=== PATIENT | male | born 1970 | race Caucasian/White ===

== ENCOUNTER 2017-10-11 12:28 | Emergency (ER) | payer MEDICAID ==
[2017-10-11] MEDS ORDERED: PROPARACAINE 0.5% OPHTH DROPS 15 ML EACHEYE STA (14:13)
[2017-10-11 14:26] VITALS: BP 130/89
--- NOTE | 2017-10-11 15:03 | ED Physician Documentation ---
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 contacts Review of Systems Constitutional: denies: Fever, Chills Eyes: reports: Photophobia, Irritation PD PAST MEDICAL HISTORY - Past Medical History Past Medical History: No Cardiovascular: None Respiratory: None Neuro: None Endocrine/Autoimmune: None Psych: Depression - Past Surgical History Past Surgical History: Yes - Present Medications Home Medications: Ambulatory Orders Medication Instructions Recorded Confirmed Erythromycin Base [Erythromycin] 1 applic OP Q4H #1 tub 10/11/17 Ibuprofen [Motrin] 400 mg PO Q6H PRN #20 tablet 10/11/17 - Allergies Allergies/Adverse Reactions: Allergies Allergy/AdvReac Type Severity Reaction Status Date / Time No Known Drug Allergies Allergy Verified 10/11/17 12:32 - Social History Does the pt smoke?: Yes Smoking Status: Current every day smoker Does the pt drink ETOH?: No Does the pt have substance abuse?: Yes Substance Use and Type: Marijuana - Immunizations Immunizations are current?: Yes - POLST Patient has POLST: No PD ED PE NORMAL - Vitals Vital signs reviewed: Yes - HEENT HEENT: PERRL, EOMI, Other (L eye very injected, thin cloudy dc, pupils roughly equal, does not appear "steamy" globes soft, EOMI, no FB seen even under lid, vertical abrasion approx 3 oclock, much less photophobic after proparacain, no limbal flush, some lid erythema but no edema and no proptosis and able to EOMI) Results - Vitals Vitals: Vital Signs - 24 hr 10/11/17 10/11/17 12:29 14:25 Temperature 36.4 C L 36.4 C L Heart Rate 117 H 112 H Respiratory 16 20 Rate Blood Pressure 140/92 H 130/89 H O2 Saturation 98 100 Oxygen O2 Source Room air PD MEDICAL DECISION MAKING - ED course ED course: exam c/w infected corneal abrasion will rx emycin ointment HR noted, a little better after proparacaine, do not think pt is septic etc, may be due to discomfort and stress over being in the ED Departure - Departure Disposition: 01 Home, Self Care Clinical Impression: Corneal abrasion Qualifiers: Encounter type: initial encounter Laterality: left Qualified Code(s): S05.02XA - Injury of conjunctiva and corneal abrasion without foreign body, left eye, initial encounter Conjunctivitis Qualifiers: Conjunctivitis type: unspecified Laterality: left Qualified Code(s): H10.9 - Unspecified conjunctivitis Condition: Good Instructions: ED Conjunctivitis Nonspecific, ED Eye Injury Corneal Abrasion Follow-Up: Dominick Flores MD [Provider Admit Priv/Credential] - (call office to be seen in follow up or Sunday) Prescriptions: Erythromycin Base [Erythromycin] 1 applic OP Q4H #1 tub Ibuprofen [Motrin] 400 mg PO Q6H PRN #20 tablet PRN Reason: Pain Comments: You have an abrasion to the lateral aspect of the cornea of your left eye and also it looks like you have a superficial eye infection called conjunctivitis. It does not look like glaucoma or a globe perforation etc Recommend you use the antibiotic ointment I prescribed every 4 hr while away, apply cool compresses and take motrin as needed for the pain, and follow p with the eye doctor Sunday or Sunday Return to the ER if worse Forms: Activity restrictions
== END 2017-10-11 15:29 | disposition home or self-care (01) ==
LOC: ED 12:28
DX: S05.02XA Injury of conjunctiva and corneal abrasion without foreign body, left eye, initial encounter (principal); W22.8XXA Striking against or struck by other objects, initial encounter; H10.9 Unspecified conjunctivitis; F17.200 Nicotine dependence, unspecified, uncomplicated
CPT/HCPCS: 99283; J3490

== ENCOUNTER 2017-10-16 13:56 | Emergency (ER) | payer MEDICAID ==
[2017-10-16 14:02] VITALS: BP 139/100
[2017-10-16] MEDS ORDERED: TOBRAM/DEXAMETH OPHTH DROPS 2.5 ML EACHEYE STA (14:17)
--- NOTE | 2017-10-16 14:20 | ED Physician Documentation ---
PD HPI OPHTHO - Stated complaint Stated Complaint: EYE IRRITATION - Chief complaint Chief Complaint: Heent - History obtained from History obtained from: Patient - History of Present Illness Timing - onset: Other (He was seen here about 6 days ago for left eye pain and periorbital swelling which has improved. He was diagnosed with corneal abrasion. Over the last couple of days similar pain and redness has moved to the right eye but without the swelling. There is no associated deficit in vision.) Review of Systems Constitutional: denies: Fever, Chills Eyes: reports: Photophobia, Discharge, Irritation. denies: Loss of vision, Decreased vision Ears: denies: Loss of hearing, Ear pain PD PAST MEDICAL HISTORY - Past Medical History Past Medical History: Yes Cardiovascular: None Respiratory: None Neuro: None Endocrine/Autoimmune: None Psych: Depression - Past Surgical History Past Surgical History: Yes - Present Medications Home Medications: Ambulatory Orders Medication Instructions Recorded Confirmed Erythromycin Base [Erythromycin] 1 applic OP Q4H #1 tub 10/11/17 Ibuprofen [Motrin] 400 mg PO Q6H PRN #20 tablet 10/11/17 Tobramycin/Dexamethasone [Tobradex 1 drops EACHEYE QID #1 bot 10/16/17 Eye Drops] - Allergies Allergies/Adverse Reactions: Allergies Allergy/AdvReac Type Severity Reaction Status Date / Time No Known Drug Allergies Allergy Verified 10/16/17 14:02 - Social History Does the pt smoke?: Yes Smoking Status: Current every day smoker Does the pt drink ETOH?: No Does the pt have substance abuse?: Yes - Immunizations Immunizations are current?: Yes - POLST Patient has POLST: No PD ED PE NORMAL - Vitals Vital signs reviewed: Yes - General General: Alert and oriented X 3, No acute distress - HEENT HEENT: Other (B red conjunctivitis bilaterally with mild to moderate periorbital edema on the left involving the lids only. That he says is much better than prior. Globes are soft. There is no periorbital swelling on the right. Flourescein examination is negative bilaterally.) - Neuro Neuro: Alert and oriented X 3, Normal speech - Psych Psych: Normal mood, Normal affect Results - Vitals Vitals: Vital Signs - 24 hr 10/16/17 13:59 Temperature 36.7 C Heart Rate 119 H Respiratory 18 Rate Blood Pressure 139/100 H O2 Saturation 99 Oxygen O2 Source Room air Departure - Departure Disposition: 01 Home, Self Care Clinical Impression: Conjunctivitis Qualifiers: Conjunctivitis type: acute Acute conjunctivitis type: unspecified Laterality: bilateral Qualified Code(s): H10.33 - Unspecified acute conjunctivitis, bilateral Condition: Good Record reviewed to determine appropriate education?: Yes Instructions: ED Conjunctivitis Nonspecific Prescriptions: Tobramycin/Dexamethasone [Tobradex Eye Drops] 1 drops EACHEYE QID #1 bot Comments: Use the eyedrops for the next week then stop. Follow-up with an eye doctor in that timeframe, since he cannot go to the in [place] as he does not take your insurance, call your insurance to see who is covered. Return if worse. Your blood pressure was elevated today on check into the emergency department. This does not mean that you have hypertension, it is a common phenomenon to come to the emergency department and have elevated blood pressure. I recommend that you see your primary care physician within the week to have it rechecked when you are feeling better.
== END 2017-10-16 14:25 | disposition home or self-care (01) ==
LOC: ED 13:56
DX: H10.33 Unspecified acute conjunctivitis, bilateral (principal); R03.0 Elevated blood-pressure reading, without diagnosis of hypertension; F17.200 Nicotine dependence, unspecified, uncomplicated
CPT/HCPCS: 99283; A9270

== ENCOUNTER 2019-12-05 08:53 | Emergency (ER) | payer MEDICAID ==
[2019-12-05 09:10] VITALS: BP 130/84
--- NOTE | 2019-12-05 09:21 | ED Physician Documentation ---
History of Present Illness - Stated complaint Stated Complaint: MALE - Chief complaint Chief Complaint: General - History obtained from History obtained from: Patient - History of Present Illness Timing: Last night Pain level max: 0 Pain level now: 0 - Additonal information Additional information: 49-year-old male presents to the emergency department stating that he had a lump on his left testicle, no the superior portion, last night. Does not have a doctor so came in for evaluation. Is otherwise asymptomatic. No pain. No discharge. Nothing makes it better or worse. Review of Systems Constitutional: denies: Fever Respiratory: denies: Cough GI: denies: Vomiting, Diarrhea Skin: denies: Rash Musculoskeletal: denies: Neck pain, Back pain Neurologic: denies: Headache PD PAST MEDICAL HISTORY - Past Medical History Cardiovascular: None Respiratory: None Endocrine/Autoimmune: None Psych: Depression - Past Surgical History Past Surgical History: Yes - Present Medications Home Medications: Ambulatory Orders Medication Instructions Recorded Confirmed Erythromycin Base [Erythromycin] 1 applic OP Q4H #1 tub 10/11/17 Ibuprofen [Motrin] 400 mg PO Q6H PRN #20 tablet 10/11/17 Tobramycin/Dexamethasone [Tobradex 1 drops EACHEYE QID #1 bot 10/16/17 Eye Drops] - Allergies Allergies/Adverse Reactions: Allergies Allergy/AdvReac Type Severity Reaction Status Date / Time No Known Drug Allergies Allergy Verified 12/05/19 09:10 - Social History Does the pt smoke?: Yes Smoking Status: Current every day smoker Does the pt drink ETOH?: No Does the pt have substance abuse?: Yes - Immunizations Immunizations are current?: Yes - POLST Patient has POLST: No PD ED PE NORMAL - Vitals Vital signs reviewed: Yes - General General: Alert and oriented X 3, No acute distress - HEENT HEENT: Moist mucous membranes - Neck Neck: Supple, no meningeal sign - Cardiac Cardiac: RRR - Respiratory Respiratory: No respiratory distress, Clear bilaterally - Abdomen Abdomen: Soft, Non tender, Non distended - Male Male : Other (small mass at the superior aspect of the L testicle. o/w normal B testicular exam and penis exam. No LAD. no discharge.) - Derm Derm: Warm and dry - Neuro Neuro: Alert and oriented X 3 - Psych Psych: Normal mood, Normal affect Results - Vitals Vitals: Vital Signs - 24 hr 12/05/19 12/05/19 12/05/19 09:04 10:27 11:00 Temperature 98.3 C H Heart Rate 108 H 103 H 96 Respiratory 16 20 Rate Blood Pressure 130/84 H O2 Saturation 93 100 98 Oxygen O2 Source Room air - Rads (name of study) testicular US Radiology: Prelim report reviewed, EMP read contemporaneously, See rad report (1. The testes demonstrate no evidence of mass or torsion. 2. There are bilateral hydroceles. 3. There are bilateral epididymal cysts. ) PD MEDICAL DECISION MAKING - ED course Complexity details: considered differential, d/w patient ED course: Patient with no acute findings on ultrasound. Does have bilateral hydroceles and bilateral epididymal cyst. These findings were shared with the patient. We will have him follow-up with urology for further care. No emergency medical condition at this time. Patient counseled regarding signs and symptoms for which I believe and urgent re-evaluation would be necessary. Patient with good understanding of and agreement to plan and is comfortable going home at this time This document was made in part using voice recognition software. While efforts are made to proofread this document, sound alike and grammatical errors may occur. Departure - Departure Disposition: 01 Home, Self Care Clinical Impression: Testicular mass Condition: Good Instructions: ED Testicular Pain [facility] Follow-Up: Nito Reyes MD [Provider Admit Priv/Credential] - Comments: Your ultrasound does not show any acute abnormality. You should follow-up with urology to ensure there are no other abnormalities. Discharge Date/Time: 12/05/19 11:00
--- NOTE | 2019-12-05 10:47 | Ultrasound Report ---
Reason: L testicular mass Procedure Date: 12/05/2019 Accession Number: [id number] / [id number] Procedure: US - Testicle w/Doppler CPT Code: Final Report FULL RESULT: EXAM: SCROTAL ULTRASOUND EXAM DATE: 12/05/2019 10:23 AM. CLINICAL HISTORY: Left testicular mass. COMPARISON: None. TECHNIQUE: Real-time scanning was performed with static images obtained. Both color-flow and Doppler spectral analysis were utilized. FINDINGS: Right: Testis: 4.7 x 2.7 x 3.4 cm. Normal size and echotexture. No mass, calcification, or abnormal blood flow. Epididymis: Blood flow and size within normal limits. There are epididymal head and body cysts. Hydrocele: Moderate sized. Varicocele: None. Left: Testis: 4.9 x 2.3 x 3.1 cm. Normal size and echotexture. No mass, calcification, or abnormal blood flow. Epididymis: Normal size and blood flow. There are epididymal head cysts. Hydrocele: Moderate sized. Varicocele: None. IMPRESSION: 1. The testes demonstrate no evidence of mass or torsion. 2. There are bilateral hydroceles. 3. There are bilateral epididymal cysts. RADIA
== END 2019-12-05 11:00 | disposition home or self-care (01) ==
LOC: ED 08:53
DX: N50.89 Other specified disorders of the male genital organs (principal); N43.3 Hydrocele, unspecified; N50.3 Cyst of epididymis; F17.200 Nicotine dependence, unspecified, uncomplicated
CPT/HCPCS: 76870; 93975; 99283; 99284

== ENCOUNTER 2022-02-09 10:06 | Emergency (ER) | payer MEDICAID ==
--- NOTE | 2022-02-09 10:36 | ED Physician Documentation ---
PD HPI HEADACHE - Stated complaint Stated Complaint: HEADACHE - Chief complaint Chief Complaint: Neuro - History obtained from History obtained from: Patient - History of Present Illness Timing - onset: How many days ago (3) Timing - onset during: Rest, Light activity Timing - duration: Days (3) Timing - details: Gradual onset, Still present Worst headache ever?: Worst headache ever? (yes, but similar character as other prior.) Location: Back Quality: Aching, Stabbing Associated symptoms: Nausea, Vision changes (having some fluttering lights in right eye.). No: Fever, Stiff neck, Vomiting, Weakness, Numbness Contributing factors: No: Anticoagulated, Recent illness, Trauma Similar symptoms before: Has not had sx before Review of Systems Constitutional: denies: Fever, Chills Nose: denies: Rhinorrhea / runny nose, Congestion Throat: denies: Sore throat Respiratory: denies: Cough GI: reports: Nausea. denies: Abdominal Pain, Vomiting, Diarrhea Skin: denies: Rash, Lesions Neurologic: reports: Headache. denies: Focal weakness, Numbness, Near syncope, Confused, Altered mental status, Head injury Psychiatric: denies: Depressed PD PAST MEDICAL HISTORY - Past Medical History Cardiovascular: None Respiratory: None Neuro: Migraines Endocrine/Autoimmune: None Psych: Depression - Past Surgical History Past Surgical History: Yes - Present Medications Home Medications: Ambulatory Orders Medication Instructions Recorded Confirmed HYDROcod/ACETAM 5/325 [[place] 5/325] 1 ea PO Q6H PRN #15 tablet 02/09/22 dexAMETHasone [Decadron] 4 mg PO DAILY #5 tablet 02/09/22 tiZANidine [Zanaflex] 4 mg PO Q8H PRN #20 tablet 02/09/22 - Allergies Allergies/Adverse Reactions: Allergies Allergy/AdvReac Type Severity Reaction Status Date / Time No Known Drug Allergies Allergy Verified 02/09/22 10:19 - Social History Does the pt smoke?: Yes Smoking Status: Current every day smoker Does the pt drink ETOH?: No Does the pt have substance abuse?: Yes - Immunizations Immunizations are current?: Yes - POLST Patient has POLST: No PD ED PE NORMAL - Vitals Vital signs reviewed: Yes - General General: Alert and oriented X 3, Well developed/nourished, Other (appears in pain, preferring darker room. 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, No motor deficit, No sensory deficit, Normal speech, Other Eye Opening: Spontaneous Motor: Obeys Commands Verbal: Oriented GCS Score: 15 Results - Vitals Vitals: Vital Signs - 24 hr 02/09/22 02/09/22 02/09/22 10:19 11:18 11:50 Temperature 36.5 C Heart Rate 93 83 85 Respiratory 18 16 16 Rate Blood Pressure 144/90 H 135/91 H 144/99 H O2 Saturation 97 100 100 02/09/22 02/09/22 12:05 12:48 Temperature Heart Rate 84 79 Respiratory 14 12 Rate Blood Pressure 162/107 H 161/102 H O2 Saturation 97 100 Oxygen O2 Source Room air - Labs Labs: Laboratory Tests 02/09/22 02/09/22 02/09/22 11:00 11:00 11:00 WBC 7.3 RBC 5.04 Hgb 14.4 Hct 43.3 MCV 85.9 MCH 28.6 MCHC 33.3 RDW 12.1 Plt Count 211 MPV 8.9 Neut # (Auto) 4.8 Lymph # (Auto) 1.5 [place] # (Auto) 0.7 Eos # (Auto) 0.2 Baso # (Auto) 0.1 Absolute Nucleated RBC 0.00 Nucleated RBC % 0.0 ESR 4 Sodium 138 Potassium 4.0 Chloride 102 Carbon Dioxide 29 Anion Gap 7.0 BUN 19 Creatinine 0.8 Estimated GFR (MDRD) 102 Glucose 100 Calcium 8.5 Magnesium 2.0 Total Bilirubin 0.6 AST 13 ALT 21 Alkaline Phosphatase 79 Total Protein 6.8 Albumin 3.7 Globulin 3.1 Albumin/Globulin Ratio 1.2 Lipase 24 - Rads (name of study) head CT Radiology: Prelim report reviewed (no acute intracranial findings. ), See rad report PD MEDICAL DECISION MAKING - ED course Complexity details: reviewed results (head CT is good. Meanwhile, was given meds for migraine pain (toradol, antiemetic) and is improved. ), re-evaluated patient (feeling improved with IV meds but still stiff neck muscles with trigger points at trapeqius muscle at level of T2, both left and right. ), considered differential (gradual onset and worsening. consider tumor/bleed/etc and will get CT to ensure no acute abnormality. ), d/w patient Departure - Departure Disposition: 01 Home, Self Care Clinical Impression: Generalized headache, Neck muscle spasm Condition: Stable Record reviewed to determine appropriate education?: Yes Instructions: ED Cephalgia Unspecified Prescriptions: dexAMETHasone [Decadron] 4 mg PO DAILY #5 tablet HYDROcod/ACETAM 5/325 [[place] 5/325] 1 ea PO Q6H PRN #15 tablet PRN Reason: Pain tiZANidine [Zanaflex] 4 mg PO Q8H PRN #20 tablet PRN Reason: Spasms Comments: Your CT scan was normal without any signs of bleeding swelling tumors etc. Your blood count was normal and you did not have a fever or any infectious symptoms. You do not have any localized weakness or cyst visual problems. These would suggest that its not related to a bleed or infectious cause such as meningitis nor stroke etc. You do have symptoms that may be consistent with migraine. The medications we gave typically will help migraine in particular. You do have a lot of muscular tenderness in the upper neck and shoulders and so you may be having a muscular tension headache as well. I would anticipate improving through the day and into tomorrow. You may consider some anti-inflammatories daily for the next few days to try to reduce recurrence and improve the muscular component. Also tizanidine muscle relaxant for stiffness and spasms. Heat stretching and massage to the upper back and neck can be useful. At [place] every 4-6 hours if needed for pain or hydrocodone/acetaminophen if needed for worse pain. I transmitted your prescriptions to [facility] in [place] at your direction. I am prescribing a short course of narcotic pain medication for you. These are potentially dangerous and addictive medications that should be used carefully. These medications may constipate you. Take an [id number] stool softener such as docusate twice daily with plenty of water while taking these medications. If you go 24 hours without a bowel movement, take [id number] MiraLAX, per package instructions. Do not drink or drive while taking these medications. If you received narcotic or sedating medications while in the emergency department do not drive for 24 hours. Store this medication in a safe, secure place and out of reach of children. It is a violation of federal law to give or sell this medication to another person or to use in a manner other than prescribed. The ED will not refill narcotic prescriptions, including prescriptions lost or stolen. You can dispose of unwanted medications at the [facility]'s office or at several pharmacies such as [facility]. Recheck if not improved well completely over the next several days or if other symptoms develop or you have frequent recurrences. Discharge Date/Time: 02/09/22 13:04
[2022-02-09] MEDS ORDERED: PROCHLORPERAZINE 10 MG/2 ML VIAL IVP STA (10:56)
[2022-02-09] MEDS ORDERED: SODIUM CHLORIDE 0.9% 1,000 ML IV STA (10:56)
[2022-02-09] MEDS ORDERED: KETOROLAC 15 MG/ML VIAL IVP STA (10:56)
[2022-02-09] MEDS ORDERED: diphenhydrAMINE INJ 50 MG/ML VIAL IVP STA (10:56)
[2022-02-09 11:05] LABS: BASOPHILS # (AUTO) 0.1 10^3/uL (0.0-0.1); BASOPHILS % (AUTO) 0.7 %; EOSINOPHILS # (AUTO) 0.2 10^3/uL (0.0-0.7); HCT - HEMATOCRIT 43.3 % (42.0-52.0); HGB - HEMOGLOBIN 14.4 g/dL (14.0-18.0); LYMPHOCYTES # (AUTO) 1.5 10^3/uL (1.5-3.5); LYMPHOCYTES % (AUTO) 20.4 %; MEAN CORPUSCULAR HEMOGLOBIN 28.6 pg (27.0-31.0); MEAN CORPUSCULAR HGB CONC 33.3 g/dL (32.0-36.0); MEAN CORPUSCULAR VOLUME 85.9 fL (80.0-94.0); MEAN PLATELET VOLUME 8.9 fL (7.4-11.4); MONOCYTES # (AUTO) 0.7 10^3/uL (0.0-1.0); MONOCYTES % (AUTO) 9.4 %; NEUTROPHILS # (AUTO) 4.8 10^3/uL (1.5-6.6); NEUTROPHILS % (AUTO) 65.8 %; PLT - PLATELET COUNT 211 10^3/uL (130-450); RED BLOOD COUNT 5.04 10^6/uL (4.70-6.10); RED CELL DISTRIBUTION WIDTH 12.1 % (12.0-15.0); WHITE BLOOD COUNT 7.3 x10^3/uL (4.8-10.8)
[2022-02-09 11:19] LABS: ALBUMIN 3.7 g/dL (3.2-5.5); ALBUMIN/GLOBULIN RATIO 1.2 (1.0-2.2); BILIRUBIN,TOTAL 0.6 mg/dL (0.2-1.0); CALCIUM 8.5 mg/dL (8.5-10.3); CREATININE 0.8 mg/dL (0.6-1.2); TOTAL PROTEIN 6.8 g/dL (6.7-8.2)
--- NOTE | 2022-02-09 11:25 | CT Report ---
PROCEDURE: HEAD WO INDICATIONS: Headache for 4 days TECHNIQUE: Noncontrast 4.5 mm thick angled axial sections acquired from the foramen magnum to the vertex. For r adiation dose reduction, the following was used: automated exposure control, adjustment of mA and/or kV according to patient size. COMPARISON: None. FINDINGS: Image quality: Excellent. CSF spaces: Basal cisterns are patent. No extra-axial fluid collections. Ventricles are normal in size and shape. Brain: No midline shift. No intracranial masses or hemorrhage. [place]-white matter interface is norm al. Skull and face: Calvarium and visualized facial bones are intact, without suspicious lesions. Sinuses: Visualized sinuses and mastoids are clear. IMPRESSION: No acute intracranial finding. Reviewed by: Corby Otero MD on 02/09/2022 11:24 AM PDT Approved by: Corby Otero MD on 02/09/2022 11:24 AM PDT Station ID: [id number]
[2022-02-09] MEDS ORDERED: HYDROmorphone 0.5 MG/0.5 ML SYRINGE IVP STA (12:00)
[2022-02-09 12:49] VITALS: BP 161/102
--- OUTSIDE RECORDS SUMMARY | 2022-02-09 16:43 | EXTERNAL MEDICAL SUMMARY RPT | Continuity of Care Document ---
:1970 Author Organization [facility] Address [address] [place] [address] Phone Allergies No information. Encounters No information. Functional Status No information. Immunizations No information. Medications date description facility +0000 ketorolac All +0000 ketorolac All Problems No information. Procedures date description facility +0000 Visit Code Hold All +0000 IM or SQ Injection All +0000 Ketorolac Tromethamine 60 mg/2 ml Soln All Results/Labs No information. Social History No information. Vital Signs date measurement value units +0000 BMI BMI 35.21 kg/m2 +0000 BP_diastolic BP_diastolic 93 mm[H g] +0000 BP_systolic BP_systolic 145 mm[Hg] [id number] heart_rate heart_rate 94 /min +0000 height_metric height_metric 170.18 cm [id number] height_standard height_standard 67 in [id number]+0000 respiration_rate respiration_rate 16 /min +0000 temperature_metric temperature_metric 36.78 C +0000 temperature_standard temperature_standard 9 8.2 F +0000 weight_metric weight_metric 101.6 kg [id number]+0000 weight_standard weight_standard 224 lb
== END 2022-02-09 13:04 | disposition home or self-care (01) ==
LOC: ED 10:06
DX: R51.9 Headache, unspecified (principal); M62.838 Other muscle spasm; F17.200 Nicotine dependence, unspecified, uncomplicated
CPT/HCPCS: 36415; 70450; 80053; 83690; 83735; 85025; 85651; 96361; 96374; 96375; 99284; 99285; J1170; J1200